=== PATIENT | male | born 1955 | race Asian ===

== ENCOUNTER 2019-10-16 20:08 | Emergency (ER) | payer BC ==
[~2019-10-16] VITALS: Ht 172.7 cm; Wt 81.6 kg
[2019-10-16 20:13] VITALS: Ht 172.7 cm; Wt 81.6 kg
[2019-10-16 21:08] LABS: CALCIUM 7.8 mg/dL (8.5-10.1); CARBON DIOXIDE 25.6 mmol/L (21-32); CHLORIDE SERUM 107 mmol/L (98-107); CREATININE SERUM 0.9 mg/dL (0.7-1.3); GFR1 > 60 mL/min; GLUCOSE SERUM 180 mg/dL (74-106); POTASSIUM SERUM 3.9 mmol/L (3.5-5.1); SODIUM SERUM 142 mmol/L (136-145)
[2019-10-16 21:09] LABS: BASOPHIL % 0.6 % (0-2); PLATELET COUNT 188 x10^3mcL (130-400); RED CELL DISTRIBUTION WIDTH 13.3 % (11.5-14.5)
[2019-10-16 21:13] LABS: ALBUMIN 2.7 g/dL (3.4-5.0); ALKALINE PHOSPHATASE 39 U/L (46-116); ALT/SGPT 38 U/L (16-63); AST/SGOT 20 U/L (15-37); BILIRUBIN TOTAL 0.3 mg/dL (0.20-1.00); LIPASE 173 IU/L (73-393)
[2019-10-16 22:53] VITALS: BP 112/60
== END 2019-10-16 22:53 | disposition home or self-care (01) ==
LOC: ED 20:08
PROVIDERS: Emergency Medicine
DX: K52.9 Noninfective gastroenteritis and colitis, unspecified (principal); E11.9 Type 2 diabetes mellitus without complications
CPT/HCPCS: J2270; J2405; J7030